=== PATIENT | male | born 1995 | race Caucasian/White ===

== ENCOUNTER → 2022-06-10 11:55 | Outpatient (CLI) | payer OTHER, SELFPAY ==
--- NOTE | ~2022-06-10 | XR_ITS ---
EXAM: XR lumbar spine 2-3V DATE: 06/10/2022 12:32 HISTORY: Lumbar spine pain . COMPARISON: None available. FINDINGS: Mild thoracolumbar scoliosis 5 nonrib-bearing lumbar-type vertebral bodies. Pedicles intact . Normal vertebral body alignment. Vertebral body heights preserved. Mild disc space narrowing at L5- S1. Normal facets and posterior elements. No fracture or dislocation. IMPRESSION: Mild degenerative disc disease at L5-S1. Reviewed, dictated and finalized at location K.
== END ==
PROVIDERS: PCP Chiropractor; Visit Provider Chiropractor
DX: M47.817 Spondylosis without myelopathy or radiculopathy, lumbosacral region (principal); M41.9 Scoliosis, unspecified
CPT/HCPCS: 72100

== ENCOUNTER 2025-08-21 07:32 | Outpatient (CLI) | payer OTHER, SELFPAY ==
--- NOTE | ~2025-08-21 | US_ITS ---
EXAMINATION: US soft tissue head and neck, 08/21/2025 8:00 INSTRUMENT TECHNOLOGIST HISTORY: D49.0 - Neoplasm of unspecified behavior of digestive system Comparison: None Technique: Menendez-scale and color Doppler images were obtained. Findings: Correlating with the palpable area within the subcutaneous tissues there is a simple appearing cystic focus measuring 1.7 x 0.5 x 1.9 cm. There is no abnormal flow identified. IMPRESSION: Nonspecific cystic focus detailed above incompletely evaluated. Contrast-enhanced CT or MRI recommended Reviewed, dictated and finalized at location P. RUMENT TECHNOLOGIST IMPRESSION: Nonspecific cystic focus detailed above incompletely evaluated. Con trast-enhanced CT or MRI recommended
== END 2025-08-21 07:33 | disposition home or self-care (01) ==
LOC: MICIMG 07:32
PROVIDERS: PCP Otolaryngology; Visit Provider Otolaryngology
DX: D49.0 Neoplasm of unspecified behavior of digestive system (principal)
CPT/HCPCS: 76536